=== PATIENT | female | born 1965 | race Caucasian/White ===

== ENCOUNTER 2020-03-10 07:53 | Outpatient (CLI) | payer OTHER, SELFPAY ==
[2020-03-10 09:04] LABS: Alanine Aminotransferase 24 U/L (14-59); Albumin Level 3.9 g/dL (3.4-5.0); Alkaline Phosphatase 65 U/L (46-116); Anion Gap 11 mmol/L (8-16); Aspartate Amino Transferase 20 U/L (15-37); Bilirubin,Total 0.5 mg/dL (0.00-1.00); Blood Urea Nitrogen 12 mg/dL (7-18); Calcium 9.6 mg/dL (8.5-10.1); Carbon Dioxide 27 mmol/L (21-32); Chloride 105 mmol/L (98-108); Cholesterol 229 mg/dL (0-200); Estimated Glomerular Filt Rate > 60; Glucose 95 mg/dL (70-99); HDL Direct 58 mg/dL (40-60); LDL Cholesterol Calculated 142 mg/dL (<130); Osmolality Calculated 295 mOsm/kg (285-295); Potassium 4.2 mmol/L (3.5-5.1); Sodium 143 mmol/L (136-145); Total Protein 7.5 g/dL (6.4-8.2); Triglycerides 144 mg/dL (0-150)
== END 2020-03-10 07:54 | disposition home or self-care (01) ==
PROVIDERS: PCP Family Medicine; Visit Provider Physician Assistant
DX: E78.5 Hyperlipidemia, unspecified (principal); I10 Essential (primary) hypertension
CPT/HCPCS: 36415; 80053; 80061

== ENCOUNTER → 2020-09-08 07:24 | Outpatient (CLI) | payer OTHER, SELFPAY ==
--- NOTE | ~2020-09-08 | MM_ITS ---
EXAMINATION: MM screening [facility] w vannesa HISTORY: Screening mammogram TECHNIQUE: Craniocaudal and mediolateral oblique 3-D tomosynthesis images were obtained and synthetic 2-D images were generated. CAD analysis was submitted and interpreted. COMPARISON: 06/29/2019, 04/14/2018, 12/26/2016 bilateral digital screening mammogram examinations BREAST PARENCHYMAL COMPOSITION: There are scattered areas of fibroglandular density. FINDINGS: Occasional bilateral benign calcifications are again noted. Medial There is no evidence of suspicious mass, calcification, or architectural distortion to suggest malignancy in either breast. T here has been no suspicious interval change. IMPRESSION: 1. No mammographic evidence of malignancy. 2. Recommend routine screening mammography in one year. BI-RADS Category 1: Negative Reviewed, dictated and finalized at location A. 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
== END ==
PROVIDERS: PCP Family Medicine; Visit Provider Physician Assistant
DX: Z12.31 Encounter for screening mammogram for malignant neoplasm of breast (principal)
CPT/HCPCS: 77063; 77067

== ENCOUNTER 2021-01-13 07:57 | Outpatient (CLI) | payer OTHER, SELFPAY ==
[2021-01-13 08:49] LABS: Anion Gap 12 mmol/L (8-16); Blood Urea Nitrogen 15 mg/dL (7-18); Calcium 9.6 mg/dL (8.5-10.1); Carbon Dioxide 25 mmol/L (21-32); Chloride 105 mmol/L (98-108); Estimated Glomerular Filt Rate > 60; Glucose 94 mg/dL (70-99); Osmolality Calculated 294 mOsm/kg (285-295); Potassium 4.4 mmol/L (3.5-5.1); Sodium 142 mmol/L (136-145)
== END 2021-01-13 07:58 | disposition home or self-care (01) ==
LOC: CHSLAB 07:59
PROVIDERS: PCP Family Medicine; Visit Provider Internal Medicine Cardiovascular Disease
DX: E11.9 Type 2 diabetes mellitus without complications (principal)
CPT/HCPCS: 36415; 80048

== ENCOUNTER → 2021-11-09 15:52 | Outpatient (CLI) | payer OTHER, SELFPAY ==
--- NOTE | ~2021-11-09 | MM_ITS ---
EXAMINATION: MM screening [facility] BI w vannesa HISTORY: Screening TECHNIQUE: Craniocaudal and mediolateral oblique 3-D tomosynthesis images were obtained and synthetic 2-D images were generated. CAD analysis was submitted and interpreted. COMPARISON: Comparison to multiple prior studies sequentially, with oldest reviewed study dated 03/2016. BREAST PARENCHYMAL COMPOSITION: There are scattered areas of fibroglandular density. FINDINGS: There is no evidence of suspicious mass, calcification, or architectural distortion to sugg est malignancy in either breast. There has been no suspicious interval change. IMPRESSION: 1. No mammographic evidence of malignancy. 2. Recommend routine screening mammography in one year. BI-RADS Category 1: Negative Reviewed, dictated and finalized at location A.
== END ==
PROVIDERS: PCP Family Medicine; Visit Provider Family Medicine
DX: Z12.31 Encounter for screening mammogram for malignant neoplasm of breast (principal)
CPT/HCPCS: 77063; 77067

== ENCOUNTER 2022-01-03 19:53 | Outpatient (CLI) | payer OTHER, SELFPAY ==
--- NOTE | 2022-01-10 19:45 | WPDSLEEPSTUD ---
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 She experiences excessive daytime sleepiness. She occasionally awakens from sleep feeling short of breath and occasionally awakens at night with heartburn, belching or coughing. She frequently snores loudly enough that others complain about it she occasionally has trouble sleeping with a cold. She does not gasp for breath at night. She occasionally has breathing problems at night observed by others. She frequently sweats excessively at night. She occasionally notices her heart pounding or beating irregularly at night. She occasionally falls asleep during the day. She does not fall asleep involuntarily or while driving. She does not have loss of muscle tone with strong emotion. She rarely has daytime difficulties due to excessive sleepiness. She does not feel paralyzed on waking or falling asleep. She occasionally has vivid dreamlike scenes upon awakening or falling asleep. She does not feel afraid to go to sleep. She occasionally has nightmares. She frequently remembers her dreams. She frequently has racing thoughts through her mind. She frequently feels sad, depressed or anxious. She frequently has muscular tension. She occasionally notices parts of her body jerking. She does not kick at night. She occasionally has crawling and aching feelings in her legs. She occasionally has leg pain at night. She does occasionally have morning jaw pain. She frequently grinds her teeth during sleep. She rarely is bothered by pain during the day and rarely awakened by pain at night. She occasionally wakes up feeling stiff in the morning with sore achy muscles. She frequently wakes up with pain in the neck and spine. She has fatigue, headaches, nightmares and palpitations. Normal bedtime is 9:00 p.m. taking 15-30 minutes to fall asleep, waking twice during the night to go to the bathroom. She wakes in the morning at 6:00 a.m.. On weekends, her bedtime is later 10:00 p.m., wake-up time is an hour later, 7:00 a.m.. She estimates getting 9 hours of sleep at night. She does not take naps in the afternoon or evenings. A short nap is not refreshing. She is usually drowsy for an hour after waking. She feels better in the morning than other times of day. Habits: Never smoked tobacco. Caffeine 3 servings a day. No alcohol or recreational drugs. [facility] Past Medical History Medical History Anxiety Depression Hypertension (~2012) Surgical History Surgical History History of hysterectomy Family History Family History Father Family history of hypercholesterolemia Hypertension Grandparent Carcinoma of colon Family history of malignant neoplasm of breast Mother Family history of malignant neoplasm of gastrointestinal tract Family history of malignant neoplasm of breast in first degree relative Social History Social History Alcohol intake: current Alcohol use details: rare Substance use: never Substance use type: does not use Gender identity (if verbalized by the patient): Female Medications Home Medications Medication Instructions Recorded Confirmed Type potassium gluconate 600 mg (99 mg) 600 mg PO DAILY 07/08/19 04/27/21 History tablet lisinopril 10 mg tablet 10 mg PO DAILY 12/30/20 04/27/21 History labetalol 200 mg tablet 400 mg PO Q12H #360 tabs
[2022-01-10 20:48] VITALS: BMI 37.5
== END 2022-01-04 06:13 | disposition home or self-care (01) ==
LOC: CHSCSM 19:54
PROVIDERS: PCP Family Medicine; Visit Provider Family Medicine
DX: G47.33 Obstructive sleep apnea (adult) (pediatric) (principal)
CPT/HCPCS: 95810

== ENCOUNTER 2022-03-21 07:11 | Outpatient (CLI) | payer OTHER, SELFPAY ==
--- NOTE | ~2022-03-21 | XR_ITS ---
EXAMINATION: XR chest 2V 03/21/2022 07:40 INDICATION: Chronic cough. Covid. PROCEDURE: 2 view chest COMPARISON: No prior studies for comparison. FINDINGS: The lungs are clear. The cardiomediastinal silhouette is within normal limits. There are no pleural effusions. There is no pneumothorax suspected. IMPRESSION: 1: NO ACUTE CARDIOPULMONARY DISEASE. Reviewed, dictated and finalized at location A.
== END 2022-03-21 07:12 | disposition home or self-care (01) ==
LOC: CHSIMG 07:13
PROVIDERS: PCP Family Medicine; Visit Provider Physician Assistant Medical
DX: R05.3 Chronic cough (principal)
CPT/HCPCS: 71046

== ENCOUNTER → 2023-04-06 08:34 | Outpatient (CLI) | payer BC, SELFPAY ==
--- NOTE | ~2023-04-06 | MM_ITS ---
EXAMINATION: MM screening [facility] BI w vannesa HISTORY: Screening mammogram TECHNIQUE: Craniocaudal and mediolateral oblique 3-D tomosynthesis images were obtained and synthetic 2-D images were generated. CAD analysis was submitted and interpreted. COMPARISON: November 09, 2021, September 08, 2020, June 29, 2019 bilateral screening mammogram examina tions BREAST PARENCHYMAL COMPOSITION: There are scattered areas of fibroglandular density. FINDINGS: There is no evidence of suspicious mass, calcification, or architectural distortion to sugg est malignancy in either breast. There has been no suspicious interval change. IMPRESSION: 1. No mammographic evidence of malignancy. 2. Recommend routine screening mammography in one year. BI-RADS Category 1: Negative Reviewed, dictated and finalized at location A.
== END ==
PROVIDERS: PCP Nurse Practitioner Family; Visit Provider Nurse Practitioner Family
DX: Z12.31 Encounter for screening mammogram for malignant neoplasm of breast (principal)
CPT/HCPCS: 77063; 77067

== ENCOUNTER 2024-03-13 10:19 | Outpatient (CLI) | payer OTHER, SELFPAY ==
[2024-03-13 10:33] LABS: Basophils Absolute Auto 0.06 K/mm3 (0.00-0.10); Basophils Percent Auto 0.8 % (0.0-1.0); Eosinophils Absolute Auto 0.19 K/mm3 (0.02-0.50); Eosinophils Percent Auto 2.7 % (1.0-6.0); Hematocrit 39.8 % (35.0-49.0); Hemoglobin 12.9 g/dL (12.0-15.0); Immature Granulocyte Absolute 0.02 K/mm3 (0.00-0.00); Immature Granulocyte Percent A 0.3 % (0.0-0.0); Lymphocytes Absolute Auto 2.22 K/mm3 (1.10-4.50); Lymphocytes Percent Auto 31.2 % (18.0-42.0); Mean Corpuscular HGB Conc 32.4 g/dL (32-36); Mean Corpuscular Hemoglobin 27.3 pg (27.0-31.0); Mean Corpuscular Volume 84.1 fL (78.0-102.0); Mean Platelet Volume 9.2 fl (9.2-11.8); Monocytes Absolute Auto 0.47 K/mm3 (0.10-0.90); Monocytes Percent Auto 6.6 % (2.0-11.0); Neutrophils Absolute Auto 4.16 K/mm3 (1.70-7.20); Neutrophils Percent Auto 58.4 % (50.0-70.0); Platelet Count Result 329 K/mm3 (150-420); Red Blood Count 4.73 M/mm3 (4.20-5.40); Red Cell Distribution Width 13.2 % (11.6-14.4); White Blood Count 7.1 K/mm3 (4.8-10.8)
[2024-03-13 10:47] LABS: Hemoglobin A1C 5.7 % (<5.7)
[2024-03-13 11:48] LABS: Alanine Aminotransferase 47 U/L (14-59); Alkaline Phosphatase 74 U/L (46-116); Anion Gap 7 mmol/L (4-12); Aspartate Amino Transferase 30 U/L (15-37); Bilirubin,Total 0.6 mg/dL (0.00-1.00); Blood Urea Nitrogen 11 mg/dL (7-18); Calcium 9.4 mg/dL (8.5-10.1); Carbon Dioxide 30 mmol/L (21-32); Chloride 103 mmol/L (98-108); Cholesterol 148 mg/dL (0-200); Estimated Glomerular Filt Rate > 60; Glucose 94 mg/dL (70-99); HDL Direct 70 mg/dL (40-60); LDL Cholesterol Calculated 63 mg/dL (<130); Osmolality Calculated 289 mOsm/kg (285-295); Potassium 4.4 mmol/L (3.5-5.1); Sodium 140 mmol/L (136-145); Total Protein 7.3 g/dL (6.4-8.2); Triglycerides 75 mg/dL (0-150)
[2024-03-13 11:57] LABS: Free T4 Free Thyroxine Reflex 0.84 ng/dL (0.76-1.46)
== END 2024-03-13 10:20 | disposition home or self-care (01) ==
LOC: CHSLAB 10:21
PROVIDERS: PCP Nurse Practitioner Family; Visit Provider Nurse Practitioner Family
DX: Z00.00 Encounter for general adult medical examination without abnormal findings (principal)
CPT/HCPCS: 36415; 80053; 80061; 83036; 84439; 84443; 85025

== ENCOUNTER 2024-04-28 14:56 | Outpatient (CLI) | payer OTHER, SELFPAY ==
--- NOTE | ~2024-04-28 | MM_ITS ---
EXAMINATION: MM screening [facility] w vannesa HISTORY: Screening TECHNIQUE: Craniocaudal and mediolateral oblique 3-D tomosynthesis images were obtained and synthetic 2-D images were generated. CAD analysis was submitted and interpreted. COMPARISON: Comparison to multiple prior studies sequentially, with oldest reviewed study dated 12/26. BREAST PARENCHYMAL COMPOSITION: Not dense: There are scattered areas of fibroglandular density. FINDINGS: There is no evidence of suspicious mass, calcification, or architectural distortion to sugg est malignancy in either breast. There has been no suspicious interval change. IMPRESSION: 1. No mammographic evidence of malignancy. 2. Recommend routine screening mammography in one year. BI-RADS Category 1: Negative Reviewed, dictated and finalized at location B.
== END 2024-04-28 14:57 | disposition home or self-care (01) ==
PROVIDERS: PCP Nurse Practitioner Family; Visit Provider Nurse Practitioner Family
DX: Z12.31 Encounter for screening mammogram for malignant neoplasm of breast (principal)
CPT/HCPCS: 77063; 77067

== ENCOUNTER 2024-06-17 09:54 | Outpatient (CLI) | payer OTHER, SELFPAY ==
--- NOTE | 2024-06-17 10:06 | ECG_ITS ---
Test Date: 2024-06-17 10:18:48 Measurements Intervals [place] Rate: 68 P: 76 [place]: 170 QRS: 62 QRSD: 96 T: 65 QT: 396 QTc: 421 Interpretive Statements SINUS RHYTHM BORDERLINE ST ABNORMALITY- INFERIOR LEADS BORDERLINE ECG No previous ECG available for comparison Electronically Signed On 06-17-2024 10:23:18 DESK CLERKS SUPERVISOR by Zaki Whiteside D.O.
[2024-06-17 10:08] LABS: Hematocrit 38.6 % (35.0-49.0); Hemoglobin 12.7 g/dL (12.0-15.0); Mean Corpuscular HGB Conc 32.9 g/dL (32-36); Mean Corpuscular Hemoglobin 27.5 pg (27.0-31.0); Mean Corpuscular Volume 83.5 fL (78.0-102.0); Mean Platelet Volume 9.2 fl (9.2-11.8); Platelet Count Result 327 K/mm3 (150-420); Red Blood Count 4.62 M/mm3 (4.20-5.40); Red Cell Distribution Width 13.2 % (11.6-14.4)
[2024-06-17 10:55] LABS: Alanine Aminotransferase 52 U/L (14-59); Albumin Level 3.9 g/dL (3.4-5.0); Alkaline Phosphatase 65 U/L (46-116); Anion Gap 12 mmol/L (4-12); Aspartate Amino Transferase 25 U/L (15-37); Bilirubin,Total 0.5 mg/dL (0.00-1.00); Blood Urea Nitrogen 11 mg/dL (7-18); Calcium 9.6 mg/dL (8.5-10.1); Carbon Dioxide 28 mmol/L (21-32); Chloride 103 mmol/L (98-108); Estimated Glomerular Filt Rate > 60; Glucose 91 mg/dL (70-99); NT Pro B Type Natriuretic Pept 163 pg/mL (0-125); Osmolality Calculated 295 mOsm/kg (285-295); Potassium 4.2 mmol/L (3.5-5.1); Sodium 143 mmol/L (136-145); Total Protein 6.9 g/dL (6.4-8.2)
[2024-06-17 10:56] LABS: Thyroid Stimulating Hormone Reflex 2.36 u/IU/mL (0.36-3.74)
[2024-06-17 11:12] LABS: Hemoglobin A1C 5.2 % (<5.7)
== END 2024-06-17 09:55 | disposition home or self-care (01) ==
LOC: CHSLAB 09:56
PROVIDERS: PCP Nurse Practitioner Family; Visit Provider Nurse Practitioner Family
DX: F41.9 Anxiety disorder, unspecified (principal); R20.0 Anesthesia of skin; R73.03 Prediabetes; I10 Essential (primary) hypertension
CPT/HCPCS: 36415; 80053; 83036; 83880; 84443; 85027; 93005

== ENCOUNTER 2024-06-29 16:18 | Outpatient (RCR) | payer OTHER, SELFPAY ==
--- NOTE | 2024-06-29 18:01 | PTOPEVAL1 ---
Assessment and note entered by Jerald Gamboa Evaluation Information Assessment Status Evaluation ICD-10 Condition Codes (PT) Difficulty Walking R26.2,R26.9 Onset 03/29/24 Subjective Information Pt. reports she fell in March of this year. she states that over the past year she has noticed she is shuffling her feet and has a LOB weekly. She states that she spends most of her day sitting , and states that she spends approximately 2 hours daily on her feet. She does use her treadmill for regular exercise. She has history of a left ankle injury that does swell throughout the day. She is uncertain what causes her LOB. She states that her concern is falling and would like to participate in therapy in order to reduce her fall risk. Reported Pain Level Pain Score 0: Self Report Assessment PT Clinical Summary Pt. is a 59 year old female who enters the clinic due to impaired gait. She presents with impaired strength, impaired posture, impaired gait, impaired balance and functional decline. Continue skilled PT is indicated in order to allow the pt. to be able to improve safety and stability with ambulation and IADL's. Plan of Care Interventions Gait Training,Neuro Re-education,Patient/Caregiver Educati,Therapeutic Activities,Therapeutic Exercise PT Services Indicated Yes Treatment Frequency and 2x/week x 10 visits Duration These treatments will address the objective and functional deficits as defined above. The patient will be advanced safely and appropriately in order for the patient to progress towards his/her prior level of function. Additional exercises will be introduced and as well as a comprehensive home exercise program upon discharge, if needed, ?to ensure carryover of functional gains achieved in the clinic. This treatment plan has been reviewed and agreement upon by the patient.
--- NOTE | 2024-06-29 18:02 | OPREHPOC ---
Outpatient Therapy Plan of Care This is a Multidisciplinary Plan of Care that may contain components documented by all disciplines (PT, OT, and ST.) PT Problem 1 PT Problem #1 Knowledge Deficit PT Goal 1 Goal / Goal Update The patient will be independent in a home exercise program. Target Visit 4 PT Problem 2 PT Problem #2 Impaired Balance PT Goal 1 Goal / Goal Update The patient will demonstrate _28_/28 on the Tinetti Balance Scale score indicating a lesser fall risk. Target Visit 10 PT Problem 3 PT Problem #3 Impaired Strength PT Goal 1 Goal / Goal Update Pt. will be able to maintain left SLS for 1 minute Pt. will present with 5/5 gross l.e. strength at the left and right ankle and 4+/5 gross hip strength. Target Visit 10
--- NOTE | 2024-07-08 08:54 | PCPTNOTE ---
Cancelled session. Reports her father went on hospice and is wanting to wait on scheduling until she finds out what is going on.
== END 2024-09-27 23:59 | disposition home or self-care (01) ==
LOC: CHSPT 16:18
PROVIDERS: Visit Provider Nurse Practitioner Family
DX: R26.89 Other abnormalities of gait and mobility (principal)
CPT/HCPCS: 97110; 97112; 97161

== ENCOUNTER 2024-09-04 01:40 | Day surgery (SDC) | payer OTHER, SELFPAY ==
[2024-08-26 16:42] VITALS: BMI 34.9
--- OUTSIDE RECORDS SUMMARY | 2024-09-04 01:42 | XMS_ITS | Clinical Summary ---
Author Organization [facility] Address [address] [place] [address] Care Team Providers Care Adding Machine Operator Name Role Phone Lily Nagy MD Primary Care Provider [phone] Allergies No known active allergies Medications clonazePAM 0.5 MG tablet 2 Active NON FORMULARYIndica tions:labatelol Indications: labatelol Active NON FORMULARYIndica tions:fluoxetin e Indications: fluoxetine Active NON FORMULARYIndica tions:amlodipin e Indications: amlodipine Active NON FORMULARYIndica tions:lisinopri l Indications: lisinopril Active aspirin 81 MG chewable tablet Chew 1 tablet (81 mg total) by mouth daily. 30 tablet 2 Active nitroglycerin 0.[address] 1 tablet (0.4 mg total) under the tongue every 5 (five) minutes as needed for Chest Pain. 3 tablet 2 Active Social History Tobacco Use Types Packs/Day Years Used Date Smoking Tobacco: Never Smokeless Tobacco: Never Alcohol Use Standard Drinks/Week Comments Not Currently 0 (1 standard drink = 0.6 oz pur e alcohol) Comments No Sex and Gender Information Value Date Recorded Sex Assigned at Not on file Legal Sex Female 10:55 AM CDT Gender Identity Not on file Sexual Orientation Not on file Last Filed Vital Signs Vital Sign Reading Time Taken Comments Blood Pressure 133/88 10/26/2021 2:00 PM CDT Pulse 70 10/26/2021 2:00 PM CDT Temperature 36.4 C (97.5 F) 10/26/2021 11:06 AM CDT Respiratory Rate 10 10/26/2021 2:00 PM CDT Oxygen Saturation 97% 10/26/2021 2:00 PM CDT Inhaled Oxygen Concentration - - Weight 99.8 kg (220 lb) 10/26/2021 11:06 AM CDT Height 165.1 cm (5' 5 ) 10/26/2021 11:06 AM CDT Body Mass Index 36.61 10/26/2021 11:06 AM CDT Plan of Treatment Health Maintenance Due Date Last Done Comments Colorectal Cancer Screening Colonoscopy (10 Years) 1966 Annual Physical 1969 Hepatitis C 1984 Hepatitis B Vaccines (1 of 3 - 19+ 3-dose series) 1985 Mammogram Screening 2006 Zoster Vaccines (1 of 2) 2016 COVID-19 Vaccine ( season) 2024 07/27/2021, 11/11/2020, 10/14/2020 Influenza Adult (#1) 2024 05/14/2020, 05/30/2019, 05/16/2018, Additional history exists DTaP, Tdap and Td Vaccines (2 - Td or Tdap) 04/20/2030 04/20/2020 Meningococcal B Vaccine Aged Out No l onger eligible based on patient's age to complete this topic Meningococcal Vaccine Aged Out No hiram margarita eligible based on patient's age to complete this topic Pneumococcal Vaccine: Pediatrics (0 to 5 Years) and At-Risk Patients (6 to 64 Years) Aged Out No longer eligible based on patient's age to complete this topic RSV Immunizations Under 20 Months Aged Out No longer eligible based on patient's age to complete this topic Insurance [facility] Care Teams Adding Machine Operator Relationship Specialty Start Date End Date Lily Nagy MD [address] [place] [address] PCP - General FAMILY PRACTICE 10/26/21
--- OUTSIDE RECORDS SUMMARY | 2024-09-04 01:42 | XMS_ITS | Referral Summary ---
Author Organization [facility] Medical Office Building B Address [address] [place] [address] Care Team Providers Care Payroll Administrator Name Role Phone Fidencio Miguel MD Unavailable [phone] Suha Oswald NP Primary Care Provider [phone] Encounters Date Type Department Care Team Description 09/01/2024 1:40 PM OPERATIONAL TEST MECHANIC - 09/01/2024 11:59 PM OPERATIONAL TEST MECHANIC Hospital Encounter [facility] [address] [place] [address] Hypertensive left ventricular hypertrophy, without heart failure; PVC's (premature ventricular contractions); Atypical chest pain Discharge Disposition: Discharge to home or self care 08/04/2024 2:30 PM OPERATIONAL TEST MECHANIC Office Visit [facility] [address] [place] [address] Wilfredo Loco MD Hypertensive left ventricular hypertrophy, without heart failure (Primary Dx); Primary hypertension; Mixed hyperlipidemia; PVC's (premature ventricular contractions); Atypical chest pain; Severe obesity (HCC) from Last 3 Months Allergies No known active allergies Medications lisinopriL (PRINIVIL,ZESTRIL ) 10 mg tablet TAKE 1 TABLET BY MOUTH EVERY DAY 90 tablet 1 4 Active FLUoxetine (PROzac) 40 mg capsule TAKE 1 CAPSULE (40 MG TOTAL) BY MOUTH DAILY. 90 capsule 1 4 Active labetaloL (NORMODYNE,TRANDA TE) 200 mg tabletIndications :Essential hypertension TAKE 1 TABLET (200 MG TOTAL) BY MOUTH 2 TIMES A DAY. 180 tablet 1 4 Active clonazePAM (KlonoPIN) 0.5 mg tabletIndications :Anxiety Take 1 tablet (0.5 mg total) by mouth 2 (two) times a day as needed for anxiety for anxiety 60 tablet 1 4 Active atorvastatin (LIPITOR) 40 mg tablet TAKE 1 TABLET BY MOUTH NIGHTLY AT BEDTIME 90 tablet 1 4 Active amLODIPine (NORVASC) 10 mg tabletIndications :Essential hypertension TAKE 1 TABLET BY MOUTH EVERY DAY 90 tablet 1 4 Active Active Problems Problem Noted Date Diagnosed Date Atypical chest pain 08/04/2024 Severe obesity 08/04/2024 Exertional chest pain 11/20/2021 Mixed hyperlipidemia 11/20/2021 Assessment & Plan (10/11/2023 9:26 AM CDT): Continues Lipitor, no side effects reported. Updated labs ordered. Assessment & Plan (03/05/2023 11:10 AM CDT): Continues Lipitor 40 mg daily, updated labs ordered Chronic fatigue 11/20/2021 PVC's (premature ventricular contractions) 11/20 AMY (obstructive sleep apnea) 11/20/2021 SOB (shortness of breath) 03/25/2020 LVH (left ventricular hypert rophy) due to hypertensive disease 03/25/2020 Assessment & Plan (03/05/2023 11:10 AM CDT): Follows with Cardiology, BP under control. No changes today. Overdue for appt with Cardio, she will make appointment Lipoma of foot 06/11/2019 Surgical menopause, symptomatic 04/14/2019 Anxiety 01/16/2013 Overview (10/31/2016): Anxiety Assessment & Plan (10/11/2023 9:33 AM CDT): Overall feels like her anxiety is well controlled on the Fluoxetine 40 mg daily. Takes her Clonazepam on average 1-3x/week. She does notice that she will sometimes need to take an additional Clonazepam later in the day after the initial as sometimes it does not fully resolve sx. Discussed vs increasing the dosage I will change the frequency to BID prn but do still want this used sparingly or we will need to consider increased the Fluoxetine. Pt agreeable. Assessment & Plan (04/12/2023 10:01 AM CDT): Much improved on the Fluoxetine 40 mg daily Will continue. Assessment & Plan (03/05/2023 11:12 AM CDT): Not at goal, noticing having to use prn Clonazepam more often than she used to and feels like she is on edge. Will increase the Fluoxetine to 40 mg daily with hopes of improving overall/daily anxiety. Hypertension 01/16/2013 Overview (10/31/2016): Hypertension Assessment & Plan (10/11/2023 9:27 AM CDT): BP increased in office today but patient has not taken her medication as of yet. BP typically normal, will continue Amlodipine, Labetalol, and Lisinopril. Updated labs ordered. Assessment & Plan (03/05/2023 11:11 AM CDT): BP stable in office, continues Amlodipine, Labetalol, Lisinopril. Updated labs ordered Resolved Problems Problem Noted Date Diagnosed Date Resolved Date Dyslipidemia 02/23/2021 11/20/2021 Ankle pain 06/11/2019 03/05/2023 Obesity (BMI 30-39.9) 03/28/20182022 Assessment & Plan (03/28/2018 1:38 PM CDT): Obesity is unchanged. Discussed the patient's BMI. The BMI is above average; BMI management plan is completed. General weight loss/lifestyle modification strategies discussed (elicit support from others; identify saboteurs; non-food rewards, etc). Diet= low-carb Limit white bread, rice, pasta, potatoes, juice, energy drinks, coffee creamers with sugar, sugar sodas, candy, cake, cookies, ice cream. Be more careful with starchy vegetables like corn, carrots, and fruits. Stay away from processed foods, fast foods, fried foods. The cornerstone of this diet is lean grilled meats, green salads or cooked greens, fat-free milk, cottage cheese, nuts like [id number], protein bars with 10-15 g of protein and 20-30 g of carbohydrate. Choose whole grain breads and pastas, brown rice, sweet potatoes, read onions--these whole grains absorb more slowly thus blood sugar does not surge so high so quickly. Avoid drinking juice, eat a piece of fruit instead. Viral URI 03/28/2018 04/14/2019 Assessment & Plan (03/28/2018 2:32 PM CDT): You have an upper respiratory infection which is viral. You will need to take OTC medications Mucinex for chest congestion Sudafed for nasal/head congestion Zyrtec for nasal drainage Dayquil/Delysm form cough Tylenol/Motrin for fever Drink plenty of fluids to stay hydrated Get plenty of rest If your symptoms worsen or you experience shortness of breath, RTC or go to ER. If you have been prescribed any medications, take them as directed Recommend Vitamin C Adiposity 01/16/2013 03/05/2023 Overview (10/31/2016): Obese Anemia 01/16/2013 03/05/2023 Overview (10/31/2016): Anemia Assessment & Plan (03/28/2018 2:37 PM CDT): Pt. With hx of anemia Last blood count done in November 2017-H/H 7.2/26.6 Pt. Takes iron supplement daily With pt. Now feeling well today, fatigued, and foggy will check blood count and iron studies. Immunizations Name Administration Dates Next Due Influenza, Quadrivalent, Spl it, Intramuscular 05/14/2016,04/28/2015 Influenza, Quadrivalent, Spl it, Preservative Free, Intramuscular 06/27/2023 Influenza, Trivalent, IM (MDV) 05/01/2022,2019,05/30/2019 Influenza, Trivalent, Preser vative Free, Intramuscular 05/05/2024 Influenza, Unspecified 07/29/2023(Deferr ed: Patient Refused),03/05/2023(Deferred: Patient Refused),07/29/2022,07/29/2021, 019,05/16/2018,05/08/2017 Tdap 04/20/2020 ZOSTER Recombinant 09/02/2023,06/27/2023 Social History Tobacco Use Types Packs/Day Years Used Date Smoking Tobacco: Never Passive Smoke Exposure: Never Smokeless Tobacco: Never Alcohol Use Standard Drinks/Week Comments Yes 0 (1 standard drink = 0.6 oz pur e alcohol) Socially AUDIT-C Answer Date Recorded Q1: How often do you have a drink containing alc ohol? Never 04/12/2023 Average Number of Drinks Not on file 023 Frequency of Binge Drinking Not on file 03/29 PHQ-2 Answer Date Recorded PHQ-2 Total Score (If total score is 3 or more points, staff should administer the PHQ-9) 0 10/11/2023 Comments No Sex and Gender Information Value Date Recorded Sex Assigned at Not on file Legal Sex Female 6:31 PM OPERATIONAL TEST MECHANIC Gender Identity Female 03/24/2020 5:35 PM CDT Sexual Orientation Straight 03/24/2020 5: 35 PM CDT Last Filed Vital Signs Vital Sign Reading Time Taken Comments Blood Pressure 118/79 09/01/2024 2:25 PM OPERATIONAL TEST MECHANIC Pulse 76 09/01/2024 2:25 PM OPERATIONAL TEST MECHANIC Temperature 37.1 C (98.8 F) 10/11/2023 8:21 AM CDT Respiratory Rate 18 10/11/2023 8:21 AM CDT Oxygen Saturation 97% 08/04/2024 2:53 PM OPERATIONAL TEST MECHANIC Inhaled Oxygen Concentration - - Weight 98.9 kg (218 lb) 08/04/2024 2:53 PM OPERATIONAL TEST MECHANIC Height 165.1 cm (5' 5 ) 08/04/2024 2:53 PM OPERATIONAL TEST MECHANIC Body Mass Index 36.28 08/04/2024 2:53 PM OPERATIONAL TEST MECHANIC Plan of Treatment Not on file Procedures Procedure Name Priority Date/Time Associated Diagnosis Comments CT HEART MORPHOLOGY AND CORONARY ARTERIES W CONTRAST Schedule Routine, Read Routine (OP Routine) 09/01/2024 2:43 PM OPERATIONAL TEST MECHANIC Hypertensive left ventricular hypertrophy, without heart failure PVC's (premature ventricular contractions) Atypical chest pain POCT CREATININE - DEVICE Routine 09/01/2024 2:08 PM OPERATIONAL TEST MECHANIC POCT LIPID PANEL Routine 08/04/2024 2:53 PM OPERATIONAL TEST MECHANIC Mixed hyperlipidemia HM MAMMOGRAPHY Routine 04/06/2023 COLONOSCOPY Routine 04/14/2018 from Last 3 Months or Most Recently Relevant to Health Maintenance Results * CTA Heart and Coronary Arteries W Morphology when Performed (09/01/2024 2:43 PM OPERATIONAL TEST MECHANIC) Anatomical Region Laterality Modality Chest N/A Computed Tomogra phy 09/01/2024 3:45 PM OPERATIONAL TEST MECHANIC Impressions 09/03/2024 7:15 AM OPERATIONAL TEST MECHANIC 1. Normal coronary CTA. No anomalous coronary artery, dissection, or coronary artery disease. 2. Calcium score is 0. 3. Ascending aorta measures up to 41 mm at the level of the main pulmonary artery. Dictated by: Gilson Alicea MD, PHD The radiology attending physician has personally reviewed this study, and had reviewed and/or edited this written report and agrees with it. Electronically signed by: Mauricio Barnard M.D. Narrative 09/03/2024 7:15 AM OPERATIONAL TEST MECHANIC EXAMINATION: CORONARY CT ANGIOGRAM HISTORY: Chest pain/anginal equivalent. TECHNIQUE: CT angiography of the coronary arteries was performed after the administration of 93 mL of Optiray 350. Images were also obtained precontrast for the purposes of calcium scoring. Prior to the examination, 10 mg of metoprolol was administered intravenously and 0.8 mg nitroglycerin was administered sublingually. The patient's heart rate at the time of the examination was 74 beats per minute. Images were transferred to a 3D workstation for additional post-processing. FINDINGS: The coronary arteries are right system dominant. There is no anomalous coronary origin or course. No focal caliber change or irregularity to suggest coronary artery dissection. Right coronary system: No significant calcified or noncalcified atherosclerotic disease. Left coronary system: No significant calcified or noncalcified atherosclerotic disease. There is shallow myocardial bridging involving a short segment of the distal left anterior descending artery. The calculated calcium score is 0. Other findings: Heart size is within normal limits. No pleural effusion. Mild dependent atelectasis in the imaged lungs. The ascending aorta measures up to 41 mm. Procedure Note Mauricio Barnard MD - 09/03/2024 EXAMINATION: CORONARY CT ANGIOGRAM HISTORY: Chest pain/anginal equivalent. TECHNIQUE: CT angiography of the coronary arteries was performed after the administration of 93 mL of Optiray 350. Images were also obtained precontrast for the purposes of calcium scoring. Prior to the examination, 10 mg of metoprolol was administered intravenously and 0.8 mg nitroglycerin was administered sublingually. The patient's heart rate at the time of the examination was 74 beats per minute. Images were transferred to a 3D workstation for additional post-processing. FINDINGS: The coronary arteries are right system dominant. There is no anomalous coronary origin or course. No focal caliber change or irregularity to suggest coronary artery dissection. Right coronary system: No significant calcified or noncalcified atherosclerotic disease. Left coronary system: No significant calcified or noncalcified atherosclerotic disease. There is shallow myocardial bridging involving a short segment of the distal left anterior descending artery. The calculated calcium score is 0. Other findings: Heart size is within normal limits. No pleural effusion. Mild dependent atelectasis in the imaged lungs. The ascending aorta measures up to 41 mm. IMPRESSION: 1. Normal coronary CTA. No anomalous coronary artery, dissection, or coronary artery disease. 2. Calcium score is 0. 3. Ascending aorta measures up to 41 mm at the level of the main pulmonary artery. Dictated by: Gilson Alicea MD, PHD The radiology attending physician has personally reviewed this study, and had reviewed and/or edited this written report and agrees with it. Electronically signed by: Mauricio Barnard M.D. Wilfredo Loco MD IM CT PROCEDURES Final R esult * POCT creatinine (09/01/2024 2:08 PM OPERATIONAL TEST MECHANIC) Creatinine POC 0.6 0.6 - 1.1 mg/dL Blood 09/01/2024 2:08 PM OPERATIONAL TEST MECHANIC 09/01/2024 2:08 PM OPERATIONAL TEST MECHANIC Mariann Madera STRIP WINDER LAB POCT ORDERABLES - DEVICE Fin al Result [facility] Department [place] [address] * POCT lipid panel (08/04/2024 2:53 PM OPERATIONAL TEST MECHANIC) Cholesterol, POC 182 mg/dL HDL, POC 73 mg/dL Triglycerides, POC 96 mg/dL LDL Cholesterol POC 90 mg/dL Chol/HDL Ratio, POC 1.2 Non-HDL Cholesterol, POC 109 mg/dL Cholesterol Total, POC 182 mg/dL Capillary blood 08/04/2024 2 :53 PM OPERATIONAL TEST MECHANIC Wilfredo Loco MD POINT OF CARE TEST ORDERA BLES Final Result * HM MAMMOGRAPHY (04/06/2023) Historical Provider HEALTH MAINTENANCE Final Result * Colonoscopy (04/14/2018) Anatomical Region Laterality Modality Other Historical Provider ENDOSCOPY PROCEDURES Suri l Result from Last 3 Months or Most Recently Relevant to Health Maintenance Insurance [place] CHO[place] [employer] COV[place] HMO/POS Advance Directives For more information, please contact: [phone] Documents on File Type Date Recorded Patient Meter Technician Expl anation Power of Eap Clinician 11/01/2021 2:08 PM Care Teams Payroll Administrator Relationship Specialty Start Date End Date Suha Oswald NP [address] [place] [address] PCP - General Family Medicine 08/04/24 Fidencio Miguel MD Consulting Physician Cardiology 03/05/23
--- OUTSIDE RECORDS SUMMARY | 2024-09-04 01:42 | XMS_ITS | Clinical Summary ---
Author Organization [facility] Medical Office Building B Address [address] [place] [address] Care Team Providers Care Operations Lieutenant Name Role Phone Fidencio Miguel MD Unavailable [phone] Suha Oswald NP Primary Care Provider [phone] Allergies No known active allergies Medications lisinopriL [...] greens, fat-free milk, cottage cheese, nuts like weiksnj-wtrstqo-jzwfele, protein bars with 10-15 g of protein [...] will check blood count and iron studies. Encounters Date Type Department Care Team Description 09/01/2024 1:40 PM ROCK WOOL APPLICATOR - 09/01/2024 11:59 PM ROCK WOOL APPLICATOR Hospital Encounter [facility] [address] [place], [place] [id number] Hypertensive left ventricular hypertrophy, without heart failure; PVC's (premature ventricular contractions); Atypical chest pain Discharge Disposition: Discharge to home or self care 08/04/2024 2:30 PM ROCK WOOL APPLICATOR Office Visit [facility] Cardiology [address] [place] [address] Wilfredo Loco MD Hypertensive left ventricular hypertrophy, without heart failure (Primary Dx); Primary hypertension; Mixed hyperlipidemia; PVC's (premature ventricular contractions); Atypical chest pain; Severe obesity (HCC) from Last 3 Months Immunizations Name Administration Dates Next Due Influenza, Quadrivalent, Spl it, Intramuscular 05/14/2016,04/28/2015 Influenza, Quadrivalent, Spl it, Preservative Free, Intramuscular 06/27/2023 Influenza, Trivalent, IM (MDV) 05/01/2022,2019,05/30/2019 Influenza, Trivalent, Preser vative Free, Intramuscular 05/05/2024 Influenza, Unspecified 07/29/2023(Deferr ed: Patient Refused),03/05/2023(Deferred: Patient Refused),07/29/2022,07/29/2021, 019,05/16/2018,05/08/2017 Tdap 04/20/2020 ZOSTER Recombinant 09/02/2023,06/27/2023 Surgical History Surgery Date Site/Laterality Comments SECTION HYSTERECTOMY WISDOM TOOTH EXTRACTION Medical History Medical History Date Comments Hypertension Hypertension Anxiety disorder Anxiety Family History Medical History Relation Name Comments Hypertension Father Morro Cabrera Hypertension; Cancer Maternal Grandmother Marlyn Aguirre Breast cancer Mother Hirla Cabrera Cancer, breast ; Cancer Mother Hiral Cabrera Liver cancer Mother Hiral Cabrera Relation Name Status Comments Father Morro Cabrera Maternal Grandmother Marlyn Aguirre Mother Hiral Cabrera Social History Tobacco Use Types Packs/Day Years [...] on file Legal Sex Female 6:31 PM ROCK WOOL APPLICATOR Gender Identity Female 03/24/2020 5:35 PM CDT Sexual Orientation Straight 03/24/2020 5: 35 PM CDT Obstetrics History Last Filed Vital Signs Vital Sign Reading Time Taken Comments Blood Pressure 118/79 09/01/2024 2:25 PM ROCK WOOL APPLICATOR Pulse 76 09/01/2024 2:25 PM ROCK WOOL APPLICATOR Temperature 37.1 C (98.8 F) 10/11/2023 8:21 AM CDT Respiratory Rate 18 10/11/2023 8:21 AM CDT Oxygen Saturation 97% 08/04/2024 2:53 PM ROCK WOOL APPLICATOR Inhaled Oxygen Concentration - - Weight 98.9 kg (218 lb) 08/04/2024 2:53 PM ROCK WOOL APPLICATOR Height 165.1 cm (5' 5 ) 08/04/2024 2:53 PM ROCK WOOL APPLICATOR Body Mass Index 36.28 08/04/2024 2:53 PM ROCK WOOL APPLICATOR Plan of Treatment Health Maintenance Due Date Last Done Comments Hepatitis C Screening 1966 Hepatitis B Screening 1984 Regular Well Visit/Exam 18-64 1984 Colon Cancer Screening-Colonoscopy 04/14/2023 04/14/2018, 04/04/2018, 04/22/2013, Additional history exists Breast Cancer Screening-Mammogram 04/06/2024 04/06/2023, 03/14/2018, 12/26/2016 Depression Screening 10/10/2024 10/11/2023, 04/12/2023, 03/05/2023, Additional history exists DTaP/Tdap/Td Vaccine (2 - Td or Tdap) 04/20/2030 04/20/2020 Colon Cancer Screening-CT Colonography Discontinued 04/14/2018, 04/22/2013, 04/22/2013 Colon Cancer Screening-DNA Stool Discontinued 04/14/2018, 04/22/2013, 04/22/2013 Colon Cancer Screening-FIT Discontinued 04/14, 04/22/2013, 04/22/2013 Colon Cancer Screening-Sigmoidoscopy Discontinued 04/14/2018, 04/22/2013, 04/22/2013 Zoster Vaccine Completed 09/02/2023, 06/27/2023 Covid-19 Vaccine Completed 05/05/2024, , 11/11/2020, Additional history exists Influenza Vaccine Completed 05/05/2024, , 07/29/2022, Additional history exists Pneumococcal vaccine <65 Aged Out No longer eligible based on patient's age to complete this topic Procedures Procedure Name Priority Date/Time Associated Diagnosis Comments CT HEART MORPHOLOGY AND CORONARY ARTERIES W CONTRAST Schedule Routine, Read Routine (OP Routine) 09/01/2024 2:43 PM ROCK WOOL APPLICATOR Hypertensive left ventricular hypertrophy, without heart failure PVC's (premature ventricular contractions) Atypical chest pain POCT CREATININE - DEVICE Routine 09/01/2024 2:08 PM ROCK WOOL APPLICATOR POCT LIPID PANEL Routine 08/04/2024 2:53 PM ROCK WOOL APPLICATOR Mixed hyperlipidemia HM MAMMOGRAPHY Routine 04/06/2023 COLONOSCOPY Routine 04/14/2018 from Last 3 Months or Most Recently Relevant to Health Maintenance Results * CTA Heart and Coronary Arteries W Morphology when Performed (09/01/2024 2:43 PM ROCK WOOL APPLICATOR) Anatomical Region Laterality Modality Chest N/A Computed Tomogra phy 09/01/2024 3:45 PM ROCK WOOL APPLICATOR Impressions 09/03/2024 7:15 AM ROCK WOOL APPLICATOR 1. Normal coronary CTA. No anomalous coronary [...] Mauricio Barnard M.D. Narrative 09/03/2024 7:15 AM ROCK WOOL APPLICATOR EXAMINATION: CORONARY CT ANGIOGRAM HISTORY: Chest pain/anginal [...] it. Electronically signed by: Mauricio Barnard M.D. us Wilfredo Loco MD IMG CT PROCEDURES Final R esult * POCT creatinine (09/01/2024 2:08 PM ROCK WOOL APPLICATOR) Creatinine POC 0.6 0.6 - 1.1 mg/dL Blood 09/01/2024 2:08 PM ROCK WOOL APPLICATOR 09/01/2024 2:08 PM ROCK WOOL APPLICATOR us Mariann Madera NP LAB POCT ORDERABLES - DEVICE Fin al Result [facility] Department [place] [address] * POCT lipid panel (08/04/2024 2:53 PM ROCK WOOL APPLICATOR) Cholesterol, POC 182 mg/dL HDL, POC 73 mg/dL Triglycerides, POC 96 mg/dL LDL Cholesterol POC 90 mg/dL Chol/HDL Ratio, POC 1.2 Non-HDL Cholesterol, POC 109 mg/dL Cholesterol Total, POC 182 mg/dL Capillary blood 08/04/2024 2 :53 PM ROCK WOOL APPLICATOR Wilfredo Loco MD POINT OF CARE TEST ORDERA BLES Final Result * HM MAMMOGRAPHY (04/06/2023) Historical Provider HEALTH MAINTENANCE Final Result * Colonoscopy (04/14/2018) Anatomical Region Laterality Modality Other Historical Provider ENDOSCOPY PROCEDURES Suri l Result from Last 3 Months or Most Recently Relevant to Health Maintenance Insurance CHOICE PRF [place] [employer] COVENTRY HMO/POS Advance Directives For more information, please contact: [phone] Documents on File Type Date Recorded 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
[2024-09-04 07:15] VITALS: BP 169/97; PULSE 88; RESP 18; TEMP 36.6; O2SAT 97
[2024-09-04] MEDS: LACTATED RINGERS 1,000 ML 150 ML IV CONT (07:22)
--- NOTE | 2024-09-04 08:11 | WPDANESEPPF ---
Anes - Initial Pre Proc Eval Procedure: Operation Date: 09/04/24 08:30 Proposed Procedures p Colonoscopy - Alonso Shanks MD Date/Time: 09/04/24 08:11 Surgeon: Alonso Shanks MD Pre Op Diagnosis: family hx of cancer Patient Data Age: 59 Gender: F Height: 1.65 m Weight: 96.8 kg Last Vital Signs Temp 36.6 C 09/04/24 07:15 Pulse 88 09/04/24 07:15 Resp 18 09/04/24 07:15 BP 169/97 H 09/04/24 07:15 Pulse Ox 97 09/04/24 07:15 O2 Del Method Room Air 09/04/24 07:15 Allergies Allergy/AdvReac Type Severity Reaction Status Date / Time No Known Allergies Allergy Verified 09/04/24 07:14 Home Medications ?Medication ?Instructions ?Recorded ?Confirmed ?Type amlodipine 10 mg tablet 10 mg PO DAILY #90 tabs 07/01/24 09/04/24 Rx atorvastatin 40 mg tablet 40 mg PO DAILY #90 tabs 07/01/24 09/04/24 Rx fluoxetine 40 mg capsule 40 mg PO DAILY #90 caps 07/01/24 09/04/24 Rx lisinopril 10 mg tablet 10 mg PO DAILY #90 tabs 07/01/24 09/04/24 Rx labetalol 200 mg tablet 200 mg PO Q12H 08/26/24 09/04/24 History multivitamin with minerals-folic 1 tablet PO DAILY 08/26/24 09/04/24 History acid 0.4 mg tablet (One Daily Womens 50 Plus) clonazepam 0.5 mg tablet 0.5 mg PO BID PRN anxiety 1 month 09/02/24 09/04/24 Rx #60 tabs Patient hx anesthesia problems: none Family hx anesthesia problems: none Results Review: All pre-operative results and documents have been reviewed as part of the pre-operative evaluation. [facility] Past Medical History Medical History Chronic cough Depression Anxiety Hypertension (~2012) Surgical History Surgical History History of hysterectomy Family History Family History Father Family history of hypercholesterolemia Hypertension Grandparent Carcinoma of colon Family history of malignant neoplasm of breast Mother Family history of malignant neoplasm of gastrointestinal tract Family history of malignant neoplasm of breast in first degree relative Social History Social History Smoking status: Never smoker Alcohol intake: current Alcohol use details: rare Substance use: never Substance use type: does not use Living arrangements: with family Occupation/Education: occupation Gender identity (if verbalized by the patient): Female Anes - Eval Final PreProcedure Day of Procedure 09/04/24 08:11 Patient weight: obese Heart: regular rate and rhythm Lungs: clear to auscultation Airway: Mallampati scale class II Neurological: alert and oriented Last oral intake: >/= 8 hours ASA classification: III Emergent: no Anesthetic plan: proceed Anesthesia type and monitoring: general GIVS and standard monitoring Results Review: All pre-operative results and documents have been reviewed as part of the pre-operative evaluation. Informed Consent: The patient's anesthetic plan and its attendant risks and benefits were discussed with the patient/family/POA. Questions were solicited and answers provided to the satisfaction of the patient/family/POA.
--- NOTE | 2024-09-04 08:18 | PM.HPGS ---
History of Present Illness History of Present Illness Consent: Risks, benefits, and alternatives have been discussed and questions answered. Patient agrees to proceed with procedure. Chief complaint: family hx of cancer Narrative: Lali Jordan is a 59 year old female with last colonoscopy 5 years ago, mother had colon cancer Review of Systems Review of Systems: All systems reviewed & are unremarkable except as noted in HPI and below PMFSH Past Medical History Medical History Chronic cough Depression Anxiety Hypertension (~2012) Surgical History Surgical History History of hysterectomy Family History Family History Father Family history of hypercholesterolemia Hypertension Grandparent Carcinoma of colon Family history of malignant neoplasm of breast Mother Family history of malignant neoplasm of gastrointestinal tract Family history of malignant neoplasm of breast in first degree relative Social History Social History Smoking status: Never smoker Alcohol intake: current Alcohol use details: rare Substance use: never Substance use type: does not use Living arrangements: with family Occupation/Education: occupation Gender identity (if verbalized by the patient): Female Meds Home Medications and Allergies Home Medications ?Medication ?Instructions ?Recorded ?Confirmed ?Type amlodipine 10 mg tablet 10 mg PO DAILY #90 tabs 07/01/24 09/04/24 Rx atorvastatin 40 mg tablet 40 mg PO DAILY #90 tabs 07/01/24 09/04/24 Rx fluoxetine 40 mg capsule 40 mg PO DAILY #90 caps 07/01/24 09/04/24 Rx lisinopril 10 mg tablet 10 mg PO DAILY #90 tabs 07/01/24 09/04/24 Rx labetalol 200 mg tablet 200 mg PO Q12H 08/26/24 09/04/24 History multivitamin with minerals-folic 1 tablet PO DAILY 08/26/24 09/04/24 History acid 0.4 mg tablet (One Daily Womens 50 Plus) clonazepam 0.5 mg tablet 0.5 mg PO BID PRN anxiety 1 month 09/02/24 09/04/24 Rx #60 tabs Allergies Allergy/AdvReac Type Severity Reaction Status Date / Time No Known Allergies Allergy Verified 09/04/24 07:14 Vital Signs Vital Signs - 24 hr 09/04/24 07:15 Temperature 97.8 F Pulse Rate 88 Respiratory Rate 18 Blood Pressure 169/97 H Pulse Oximetry 97 Oxygen Delivery Room Air Exam Const: General: comfortable and no acute distress HENMT: Face/Nose/Sinus: Normal nares present Eyes: General: appearance normal, both eyes and all related structures Neck: Neck: no JVD Resp: Auscultation: clear to auscultation bilaterally Cardio: Rate: regular rate Rhythm: regular rhythm GI: Inspection: non-distended GI Palp: Yes Soft to palpation Skin: General skin exam: normal color Neuro: General: gait normal Speech: normal speech Extrem: General: normal to inspection Psych: Mental Status: mental status grossly normal Assessment and Plan Assessment and plan (1) Family history of colon cancer: Code(s): Z80.0 - Family history of malignant neoplasm of digestive organs Status: Acute Assessment and Plan: colonoscopy
[2024-09-04 08:36] VITALS: BP 111/67; PULSE 86; RESP 20; O2SAT 98
[2024-09-04 08:46] VITALS: BP 140/64; PULSE 77; RESP 20; O2SAT 99
[2024-09-04 08:56] VITALS: BP 130/70; PULSE 76; RESP 22; O2SAT 99
== END 2024-09-04 09:07 | disposition home or self-care (01) ==
PROVIDERS: PCP Family Medicine; Referring Provider Nurse Practitioner Family; Visit Provider Internal Medicine Gastroenterology
PROC: 0DJD8ZZ Inspection of Lower Intestinal Tract, Via Natural or Artificial Opening Endoscopic (ICD-10-PCS; CPT 45378; principal; 2024-09-04 08:30)
DX: Z12.11 Encounter for screening for malignant neoplasm of colon (principal); K57.30 Diverticulosis of large intestine without perforation or abscess without bleeding; K64.8 Other hemorrhoids; Z80.0 Family history of malignant neoplasm of digestive organs
CPT/HCPCS: 45378; J2003; J2704; J7120

== ENCOUNTER 2025-07-27 07:13 | Outpatient (CLI) | payer OTHER, SELFPAY ==
--- NOTE | ~2025-07-27 | MM_ITS ---
EXAMINATION: MM screening emily BI w vannesa HISTORY: Screening. TECHNIQUE: Craniocaudal and mediolateral oblique 3-D tomosynthesis images were obtained and synthetic 2-D images were generated. CAD analysis was submitted and interpreted. COMPARISON: 2023, 2022, and 2021. BREAST PARENCHYMAL COMPOSITION: Not Dense: There are scattered areas of fibroglandular tissue. FINDINGS: No suspicious masses are seen. There are no suspicious calcifications. No unexplained architectural distortion is seen. There are no skin or nipple abnormalities identified. There is no adenopathy seen on the images submitted. IMPRESSION: No mammographic evidence to suggest malignancy is seen. The patient may return to screening mammography as per ACR guidelines. BI-RADS 1 - Negative. Reviewed, dictated and finalized at location C. SPORTATION ENGINEER
--- OUTSIDE RECORDS SUMMARY | 2025-07-27 07:15 | XMS_ITS | Clinical Summary ---
Author Organization [facility] Address [address] [place] [address] Care Team Providers Care Basic Acoustic Analyst Name Role Phone Lily Nagy MD Primary Care Provider [phone] Allergies No known active allergies Medications clonazePAM [...] 11:06 AM CDT Height 165.1 cm (5' 5) 10/26/2021 11:06 AM CDT Body Mass Index 36.61 10/26/2021 11:06 AM CDT Plan of Treatment Health Maintenance Due Date Last Done Comments Colorectal Cancer Screening Colonoscopy (10 Years) 1966 Annual Physical 1969 Hepatitis C 1984 Mammogram Screening 2006 Pneumococcal Vaccine: 50+ Years (1 of 1 - PCV) 2016 Zoster Vaccines (1 of 2) 2016 COVID-19 Vaccine (4 - season) 2025 07/27/2021, 11/11/2020, 10/14/2020 Influenza Adult (#1) 2025 05/14/2020, 05/30/2019, 05/16/2018, Additional history exists DTaP, Tdap and Td Vaccines (2 - Td or Tdap) 04/20/2030 04/20/2020 Hepatitis A Vaccines Aged Out No long er eligible based on patient's age to complete this topic Meningococcal B Vaccine Aged Out No l onger eligible based on patient's age to complete this topic Meningococcal Vaccine Aged Out No hiram margarita eligible based on patient's age to complete this topic RSV Immunizations Under 20 Months Aged Out No longer eligible based on patient's age to complete this topic Insurance [place] [id number] Care Teams Basic Acoustic Analyst Relationship Specialty Start Date End Date Lily Nagy MD [address] [place] [address] PCP - General FAMILY PRACTICE 10/26/21
== END 2025-07-27 07:14 | disposition home or self-care (01) ==
LOC: CHSIMG 07:14
PROVIDERS: PCP Family Medicine; Visit Provider Nurse Practitioner Family
DX: Z12.31 Encounter for screening mammogram for malignant neoplasm of breast (principal)
CPT/HCPCS: 77063; 77067